=== PATIENT | female | born 1955 | race Caucasian/White ===

== ENCOUNTER 2016-07-24 11:10 | Emergency (ER) | payer SELFPAY ==
[~2016-07-24] VITALS: Ht 167.6 cm; Wt 70.0 kg
[~2016-07-24 11:10] MED LIST: CIPR500T4 PO
[2016-07-24 11:12] VITALS: BP 127/78; PULSE 99; RESP 16; TEMP 98.1; O2SAT 94
[2016-07-24] MEDS ORDERED: PERM5CRE TOPICAL (12:03)
--- NOTE | 2016-07-24 12:06 | PD ---
HPI Chief Complaint: Skin Problem Time Seen by Provider: 12:03 Travel History International Travel<30 days: No Contact w/Intl Traveler<30days: No Traveled to known affect area: No History of Present Illness HPI 61-year-old female presents to the emergency room for evaluation of itchy red rash for the past 2 days. Patient states she recently spent the night at her friend's house down the street and developed a rash shortly afterward. States it seems to be spreading. Started on her abdomen. She has been taking Benadryl without significant relief. Itching is the worst at night. PFSH Past Medical History Diabetes: Yes (NO MEDS) Diminished Hearing: No Menopausal: Yes Past Surgical History Section: Yes (1) Other Surgery: Yes (breast implants) Social History Alcohol Use: Yes (HX OF ETOH ABUSE) Tobacco Use: No Substance Use: Yes Allergies-Medications (Allergen,Severity, Reaction): Coded Allergies: No Known Allergies (Verified , 07/24/16) Reported Meds & Prescriptions Reported Meds & Active Scripts Active No Active Prescriptions or Reported Medications Review of Systems Except as stated in HPI: all other systems reviewed are Neg Physical Exam Narrative GENERAL: Well-nourished, well-developed female in no acute distress. Afebrile. Ambulatory. SKIN: Warm and dry. Extensive maculopapular erythematous rash throughout body. Multiple excoriations. Positive burrowing sign. Positive breakfast, lunch, dinner sign. HEAD: Normocephalic. EYES: No scleral icterus. No injection or drainage. NECK: Supple, trachea midline. No JVD or lymphadenopathy. Data Data Last Documented VS Vital Signs Date Time Temp Pulse Resp B/P Pulse Ox O2 Delivery O2 Flow Rate FiO2 07/24/16 11:12 98.1 99 16 127/78 94 Room Air MDM Medical Decision Making Medical Screen Exam Complete: Yes Emergency Medical Condition: Yes Medical Record Reviewed: Yes Differential Diagnosis Allergic dermatitis versus folliculitis versus scabies Narrative Course 61-year-old female presents to the emergency room for evaluation of itchy red rash for the past 2 days. Rash started after she spent the night with a friend. Physical exam reveals extensive maculopapular erythematous rash throughout body. Multiple excoriations. Positive burrowing sign. Positive breakfast, lunch, dinner sign. This is scabies. Patient discharged with permethrin. Told to wash clothes in hot water and follow up with primary care physician or return for worsening symptoms. She understands and agrees to plan. Diagnosis Primary Impression: Scabies Referrals: Primary Care Physician Patient Instructions: General Instructions, Scabies (ED) Additional Instructions: Rest and drink plenty of fluids. Apply cream to entire body. Leave on for 8-10 hours. If new red spots develop after application, repeat in one week. Follow-up with a primary care physician. Return to the emergency room for worsening symptoms. Med/Other Pt SpecificInfo: Prescription(s) given Scripts Permethrin Topical 5% Cream1 Applic TOPICAL ONCE #1 TUBE Ref 0 Prov:Erika Garcia MD 07/24/16 Disposition: 01 DISCHARGE HOME Condition: Stable Nessa Clark Jul 24, 2016 12:06
== END 2016-07-24 12:20 | disposition home or self-care (01) ==
LOC: NEPB 11:10
DX: B86 Scabies (principal); E11.9 Type 2 diabetes mellitus without complications; F10.21 Alcohol dependence, in remission
CPT/HCPCS: 99283

== ENCOUNTER 2016-08-02 05:10 | Emergency (ER) | payer SELFPAY ==
[~2016-08-02 05:10] MED LIST changes: -CIPR500T4 PO; +PERM5CRE TOPICAL
[2016-08-02 05:20] VITALS: BP 131/72; PULSE 104; RESP 16; TEMP 98.1; O2SAT 96
--- NOTE | 2016-08-02 06:14 | PD ---
HPI Chief Complaint: Skin Problem Time Seen by Provider: 05:57 Travel History International Travel<30 days: No Contact w/Intl Traveler<30days: No Traveled to known affect area: No History of Present Illness HPI The patient is a 61-year-old homeless female that has been homeless for 3 days. She sleeps outside with blankets and covers. She does not feel anything biting her. She has not had a shower in over 3 days. She is starting to get skin rashes where she can touch. The skin rash does not follow areas were scabies usually goes like between the fingers and belt line but it is instead where she can scratch subjective the back, arms and legs. She itches all over, possibly because she is not bathing and this appears to be a rash created by her scratching. She drinks occasionally and does not smoke. PFSH Past Medical History Diabetes: Yes (NO MEDS) Diminished Hearing: No ?: Not Menopausal: Yes Past Surgical History Section: Yes (1) Other Surgery: Yes (breast implants) Social History Alcohol Use: Yes (HX OF ETOH ABUSE) Tobacco Use: No Substance Use: Yes Allergies-Medications (Allergen,Severity, Reaction): Coded Allergies: No Known Allergies (Verified , 08/02/16) Reported Meds & Prescriptions Reported Meds & Active Scripts Active No Active Prescriptions or Reported Medications Review of Systems Except as stated in HPI: all other systems reviewed are Neg Physical Exam Narrative GENERAL: The patient is alert, oriented 3 in slight distress with her skin pruritus. The pulse is 104 but the rest the vital signs are normal. The patient has extremely poor hygiene. SKIN: Warm and dry.The patient has lesions that appeared to be caused by fingernails, scratched skin in areas that are about 3-4 mm in diameter. None of these are infected yet. HEAD: Atraumatic. Normocephalic. EYES: Pupils equal and round. No scleral icterus. No injection or drainage. ENT: No nasal bleeding or discharge. Mucous membranes pink and moist. NECK: Trachea midline. No JVD. CARDIOVASCULAR: Regular rate and rhythm. No murmur appreciated. RESPIRATORY: No accessory muscle use. Clear to auscultation. Breath sounds equal bilaterally. GASTROINTESTINAL: Abdomen soft, non-tender, nondistended. Hepatic and splenic margins not palpable. MUSCULOSKELETAL: No obvious deformities. No clubbing. No cyanosis. No edema. NEUROLOGICAL: Awake and alert. No obvious cranial nerve deficits. Motor grossly within normal limits. Normal speech. PSYCHIATRIC: Appropriate mood and affect; insight and judgment normal. Data Data Last Documented VS Vital Signs Date Time Temp Pulse Resp B/P Pulse Ox O2 Delivery O2 Flow Rate FiO2 08/02/16 06:53 75 18 127/68 100 Room Air 08/02/16 05:20 98.1 Orders Complete Blood Count With Diff (08/02/16 06:15) Comprehensive Metabolic Panel (08/02/16 06:15) Urinalysis - C+S If Indicated (08/02/16 06:15) Sodium Chlor 0.9% 1000 Ml Inj (Ns 1000 M (08/02/16 06:15) Diphenhydramine (Benadryl) (08/02/16 07:00) Labs Laboratory Tests Test 08/02/16 06:45 White Blood Count 4.2 TH/MM3 Red Blood Count 4.33 MIL/MM3 Hemoglobin 13.5 GM/DL Hematocrit 39.5 % Mean Corpuscular Volume 91.3 FL Mean Corpuscular Hemoglobin 31.3 PG Mean Corpuscular Hemoglobin 34.2 % Concent Red Cell Distribution Width 12.6 % Platelet Count 238 TH/MM3 Mean Platelet Volume 6.9 FL Neutrophils (%) (Auto) 52.6 % Lymphocytes (%) (Auto) 30.0 % Monocytes (%) (Auto) 12.9 % Eosinophils (%) (Auto) 3.6 % Basophils (%) (Auto) 0.9 % Neutrophils # (Auto) 2.2 TH/MM3 Lymphocytes # (Auto) 1.3 TH/MM3 Monocytes # (Auto) 0.5 TH/MM3 Eosinophils # (Auto) 0.2 TH/MM3 Basophils # (Auto) 0.0 TH/MM3 CBC Comment DIFF FINAL Differential Comment MDM Medical Decision Making Medical Screen Exam Complete: Yes Emergency Medical Condition: Yes Medical Record Reviewed: Yes Differential Diagnosis Neurodermatitis, scabies, impetigo Narrative Course The patient appears to have neurodermatitis. The pruritus is caused by extremely poor hygiene. I discussed the patient with the [facility] service, Dr. Ruiz and she did not feel it appropriate that we could 23 hour observation this patient so she can get a shower and case management recommendation. The patient will remain in the emergency department and the nurses will try to get a hot shower for her and case management will consult on this patient to [facility] her some penitentiary where she will not lie on the ground. Diagnosis Primary Impression: Neurodermatitis Additional Impression: Homeless single person Additional Instructions: We are hoping to get shoe to a homeless penitentiary or [facility]. Apparently, family members are not willing to help this patient at this time. The patient does have family members. Med/Other Pt SpecificInfo: No Change to Meds Scripts No Active Prescriptions or Reported Meds Disposition: 01 DISCHARGE HOME Condition: Stable Sushil Paul MD Aug 02, 2016 06:14
[2016-08-02] MEDS ORDERED: SODIUM CHLOR 0.9% 1000 ML INJ 1,000 ML IV SCH (06:15)
[2016-08-02 06:53] VITALS: BP 127/68; PULSE 75; RESP 18; O2SAT 100
[2016-08-02 06:56] LABS: AUTOMATED NEUTROPHIL # 2.2 TH/MM3 (1.8-7.7); BASOPHIL % 0.9 % (0.0-2.0); EOSINOPHIL # 0.2 TH/MM3 (0-0.4); EOSINOPHIL % 3.6 % (0.0-4.0); HEMATOCRIT 39.5 % (35.0-46.0); HEMO FLAGS DIFF FINAL; LYMPHOCYTE # 1.3 TH/MM3 (1.0-4.8); MEAN CELL VOLUME 91.3 FL (80.0-100.0); MEAN CORPUSCULAR HEMOGLOBIN 31.3 PG (27.0-34.0); MEAN CORPUSCULAR HGB CONC 34.2 % (32.0-36.0); MONO % 12.9 % (0.0-8.0); NEUT % 52.6 % (16.0-70.0); PLATELET COUNT 238 TH/MM3 (150-450); RED BLOOD COUNT 4.33 MIL/MM3 (4.00-5.30); RED CELL DISTRIBUTION WIDTH 12.6 % (11.6-17.2); WHITE BLOOD COUNT 4.2 TH/MM3 (4.0-11.0)
[2016-08-02] MEDS ORDERED: diphenhydrAMINE HCL 50 MG CAP PO ONE (07:00)
[2016-08-02 07:16] LABS: ALKALINE PHOSPHATASE 76 U/L (45-117); ALT (GPT) 24 U/L (10-53); ANION GAP 11 MEQ/L (5-15); AST (GOT) 22 U/L (15-37); BICARBONATE 29.2 MEQ/L (21.0-32.0); BLOOD UREA NITROGEN 5 MG/DL (7-18); CHLORIDE 99 MEQ/L (98-107); GLOMERULAR FILTRATION RATE 102 ML/MIN (>89); SODIUM (NA) 139 MEQ/L (136-145); TOTAL BILIRUBIN ADULT 1.5 MG/DL (0.2-1.0)
[2016-08-02 07:17] LABS: POTASSIUM 2.9 MEQ/L (3.5-5.1)
[2016-08-02] MEDS ORDERED: POTA10CA PO (07:22)
[2016-08-02] MEDS ORDERED: POTASSIUM CHLORIDE 20 MEQ CONTROLLED RELEASE TAB PO ONE (07:30)
[2016-08-02 07:50] LABS: BLOOD, URINE SMALL (NEG); GLUCOSE,URINE NEG (NEG); KETONE, URINE NEG (NEG); NITRITE,URINE NEG (NEG)
[2016-08-02 07:59] LABS: METHOD OF COLLECTION CLEAN CATCH; URINE COLOR YELLOW (YELLW/STRAW)
[2016-08-02 08:00] LABS: BACTERIA, URINE RARE /hpf; COMMENT (UR) CULTURE INDICATED; CULTURE IF INDICATED CULTURE INDICATED
[2016-08-02] MEDS ORDERED: BENA25TA3 PO (08:49)
[2016-08-02] MEDS ORDERED: PERM5CRE11 TOPICAL (08:50)
--- NOTE | 2016-08-02 08:50 | PD ---
Physical Exam Narrative Patient was seen by ED physician and signed out to me. Data Data Last Documented VS Vital Signs Date Time Temp Pulse Resp B/P Pulse Ox O2 Delivery O2 Flow Rate FiO2 08/02/16 06:53 75 18 127/68 100 Room Air 08/02/16 05:20 98.1 Orders Complete Blood Count With Diff (08/02/16 06:15) Comprehensive Metabolic Panel (08/02/16 06:15) Urinalysis - C+S If Indicated (08/02/16 06:15) Sodium Chlor 0.9% 1000 Ml Inj (Ns 1000 M (08/02/16 06:15) Diphenhydramine (Benadryl) (08/02/16 07:00) Potassium Chloride (Kcl) (08/02/16 07:30) Urine Culture (08/02/16 07:46) Labs Laboratory Tests Test 08/02/16 08/02/16 06:45 07:46 White Blood Count 4.2 TH/MM3 Red Blood Count 4.33 MIL/MM3 Hemoglobin 13.5 GM/DL Hematocrit 39.5 % Mean Corpuscular Volume 91.3 FL Mean Corpuscular Hemoglobin 31.3 PG Mean Corpuscular Hemoglobin 34.2 % Concent Red Cell Distribution Width 12.6 % Platelet Count 238 TH/MM3 Mean Platelet Volume 6.9 FL Neutrophils (%) (Auto) 52.6 % Lymphocytes (%) (Auto) 30.0 % Monocytes (%) (Auto) 12.9 % Eosinophils (%) (Auto) 3.6 % Basophils (%) (Auto) 0.9 % Neutrophils # (Auto) 2.2 TH/MM3 Lymphocytes # (Auto) 1.3 TH/MM3 Monocytes # (Auto) 0.5 TH/MM3 Eosinophils # (Auto) 0.2 TH/MM3 Basophils # (Auto) 0.0 TH/MM3 CBC Comment DIFF FINAL Differential Comment Sodium Level 139 MEQ/L Potassium Level 2.9 MEQ/L Chloride Level 99 MEQ/L Carbon Dioxide Level 29.2 MEQ/L Anion Gap 11 MEQ/L Blood Urea Nitrogen 5 MG/DL Creatinine 0.60 MG/DL Estimat Glomerular Filtration 102 ML/MIN Rate Random Glucose 114 MG/DL Calcium Level 9.0 MG/DL Total Bilirubin 1.5 MG/DL Aspartate Amino Transf 22 U/L (AST/SGOT) Alanine Aminotransferase 24 U/L (ALT/SGPT) Alkaline Phosphatase 76 U/L Total Protein 7.7 GM/DL Albumin 3.6 GM/DL Urine Collection Type CLEAN CATCH Urine Color YELLOW Urine Turbidity CLEAR Urine pH 6.0 Urine Specific [place] 1.004 Urine Protein NEG mg/dL Urine Glucose (UA) NEG mg/dL Urine Ketones NEG mg/dL Urine Occult Blood SMALL Urine Nitrite NEG Urine Bilirubin NEG Urine Leukocyte Esterase MOD Urine RBC 4-9 /hpf Urine WBC 20-24 /hpf Urine Squamous Epithelial 6-8 /hpf Cells Urine Bacteria RARE /hpf Microscopic Urinalysis Comment CULTURE INDICATED Urine Collection Time 07:46 MDM Supervised Visit with [facility]: Yes Diagnosis Primary Impression: Neurodermatitis Additional Impression: Homeless single person Patient Instructions: General Instructions Additional Instruction: We are hoping to get shoe to a homeless [facility] or [facility]. Apparently, family members are not willing to help this patient at this time. The patient does have family members. Scripts Permethrin Topical (Elimite Topical)5% Cream1 Applic TOPICAL ONCE #1 TUBE Ref 0 Prov:Jigar Freeman MD 08/02/16 Diphenhydramine (Benadryl Allergy)25 Mg Tab25 Mg PO Q6H PRN (ALLERGIES) #30 TAB Ref 0 Prov:Jigar Freeman MD 08/02/16 Potassium Chloride ER 10 Meq Cap10 Meq PO BID #30 CAP Ref 0 Prov:Jigar Freeman MD 08/02/16 Disposition: 01 DISCHARGE HOME Condition: Stable Jigar Freeman MD Aug 02, 2016 08:50
== END 2016-08-02 09:15 | disposition home or self-care (01) ==
LOC: PHED 05:10
DX: L28.0 Lichen simplex chronicus (principal); E11.9 Type 2 diabetes mellitus without complications; F19.10 Other psychoactive substance abuse, uncomplicated; Z59.0 Homelessness
CPT/HCPCS: 80053; 81001; 85025; 86403; 87077; 87086; 87186; 99283; J7030; Q0163

== ENCOUNTER 2016-08-05 08:11 | Emergency (ER) | payer SELFPAY ==
[~2016-08-05] VITALS: Ht 167.6 cm; Wt 67.8 kg
[~2016-08-05 08:11] MED LIST changes: +BENA25TA3 PO; -PERM5CRE TOPICAL; +PERM5CRE11 TOPICAL; +POTA10CA PO
[2016-08-05 08:25] VITALS: BP 119/60; PULSE 79; RESP 17; TEMP 97.9; O2SAT 97
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
[2016-08-05] MEDS ORDERED: hydrOXYzine PAMOATE 25 MG CAP PO ONE (08:45)
== END 2016-08-05 09:09 | disposition home or self-care (01) ==
LOC: PHED 08:11
DX: R21 Rash and other nonspecific skin eruption (principal); Z59.0 Homelessness
CPT/HCPCS: 99282; Q0177

== ENCOUNTER 2016-10-11 02:09 | Emergency (ER) | payer SELFPAY ==
[~2016-10-11] VITALS: Ht 167.6 cm; Wt 62.6 kg
[2016-10-11 02:19] VITALS: BP 107/73; PULSE 77; RESP 16; TEMP 98; O2SAT 96
[2016-10-11 05:31] VITALS: BP 107/73; PULSE 77; RESP 18; TEMP 98; O2SAT 96
[2016-10-11 05:58] VITALS: BP 127/71; PULSE 60; RESP 16; O2SAT 98
--- NOTE | 2016-10-11 06:22 | PD ---
HPI Chief Complaint: Allergic/Adverse Reaction Time Seen by Provider: 06:11 Travel History International Travel<30 days: No Contact w/Intl Traveler<30days: No Traveled to known affect area: No History of Present Illness HPI The patient is a 61-year-old homeless female who states she developed a rash a few hours ago. She states she had this before and several Benadryl helped stop the itching. She notes she needs a shower and she thinks she can get that at [facility]. She cannot afford any medications. She called an ambulance today to come to the emergency department. She called the ambulance mainly because she did not have a ride. PFSH Past Medical History Hx Anticoagulant Therapy: No Diabetes: No Diminished Hearing: No Tetanus Vaccination: < 5 Years Influenza Vaccination: No ?: Not LMP: menopausal Menopausal: Yes Past Surgical History Section: Yes (1) Other Surgery: Yes (breast implants) Social History Alcohol Use: No (HX OF ETOH ABUSE) Tobacco Use: No Substance Use: Yes Allergies-Medications (Allergen,Severity, Reaction): Coded Allergies: No Known Allergies (Verified , 10/11/16) Reported Meds & Prescriptions Reported Meds & Active Scripts Active No Active Prescriptions or Reported Medications Review of Systems Except as stated in HPI: all other systems reviewed are Neg Physical Exam Narrative GENERAL: Well-nourished, well-developed patient in slight apparent distress with her pruritic skin rash. The patient exhibits poor hygiene. Her vital signs are normal. SKIN: Warm and dry. There are multiple areas of erythematous papules of varying sizes that do not appear at the belt line and do not appear between the toes or the fingers. This does not appear as scabies. These do not appear as insect bites. The anterior forearms and lower legs are spared. The back and anterior trunk are the main areas of the rash. There is also a lesion on the left foot that is starting to get infected. Her fingernails are encrusted with dirt and these are likely to cause impetigo with her scratching. HEAD: Normocephalic. EYES: No scleral icterus. No injection or drainage. NECK: Supple, trachea midline. No JVD or lymphadenopathy. CARDIOVASCULAR: Regular rate and rhythm without murmurs, gallops, or rubs. RESPIRATORY: Breath sounds equal bilaterally. No accessory muscle use. GASTROINTESTINAL: Abdomen soft, non-tender, nondistended. MUSCULOSKELETAL: No cyanosis, or edema. BACK: Nontender without obvious deformity. No CVA tenderness. Data Data Last Documented VS Vital Signs Date Time Temp Pulse Resp B/P Pulse Ox O2 Delivery O2 Flow Rate FiO2 10/11/16 05:58 60 16 127/71 98 Room Air 10/11/16 05:31 98.0 MDM Medical Decision Making Medical Screen Exam Complete: Yes Emergency Medical Condition: Yes Medical Record Reviewed: Yes Differential Diagnosis Allergic rash, scabies, neurodermatitis Narrative Course The patient likely has an allergic rash. This does not appear to be scabies because of its distribution and timing. The patient exhibits poor hygiene and she needs to take some hot showers. The lesion on her left foot is infected and we will give her some anabolic ointment for this. She cannot afford any medications and we will give her some Benadryl tablets here. Diagnosis Primary Impression: Rash and nonspecific skin eruption Additional Instructions: It is extremely important to clean under your fingernails and get several good hot showers. This will improve the itching and the rash. Med/Other Pt SpecificInfo: No Change to Meds Scripts No Active Prescriptions or Reported Meds Disposition: 01 DISCHARGE HOME Condition: Stable Sushil Paul MD Oct 11, 2016 06:22
[2016-10-11] MEDS ORDERED: diphenhydrAMINE HCL 50 MG CAP PO ONE (06:30)
[2016-10-11 06:46] VITALS: BP 117/66
== END 2016-10-11 06:58 | disposition home or self-care (01) ==
LOC: PHED 02:09
DX: R21 Rash and other nonspecific skin eruption (principal); Z59.0 Homelessness
CPT/HCPCS: 99283; Q0163

== ENCOUNTER 2016-11-19 11:27 | Emergency (ER) | payer SELFPAY ==
[~2016-11-19] VITALS: Ht 167.6 cm; Wt 63.0 kg
[2016-11-19 11:28] VITALS: BP 134/89; PULSE 87; RESP 16; TEMP 97.9; O2SAT 98
--- NOTE | 2016-11-19 11:37 | PD ---
HPI . itchy rash to abdomen and some on body Chief Complaint: Skin Problem Time Seen by Provider: 11:37 Travel History International Travel<30 days: No Contact w/Intl Traveler<30days: No Traveled to known affect area: No History of Present Illness HPI 61-year-old female who is homeless here with complaints of itchy rash to her abdomen. Patient says that she has been seen several times for this rash, but that it is still present. I looked back in her reports and in July she was diagnosed with scabies. She tells me that she never took the medication. She admits to being homeless and sleeping outside in a tent. It is possible that she is being bitten by bugs. She does not get regular showers. She admits to itching. She denies any fever or chills or rashes with drainage. PFSH Past Medical History Hx Anticoagulant Therapy: No Diabetes: No Diminished Hearing: No ?: Not Menopausal: Yes Past Surgical History Section: Yes (1) Other Surgery: Yes (breast implants) Social History Alcohol Use: No (HX OF ETOH ABUSE) Tobacco Use: No Substance Use: Yes Allergies-Medications (Allergen,Severity, Reaction): Coded Allergies: No Known Allergies (Verified , 11/19/16) Reported Meds & Prescriptions Reported Meds & Active Scripts Active Vistaril (Hydroxyzine Pamoate) 25 Mg Cap 25 Mg PO HS Permethrin Topical (Permethrin) 5% Cream 1 Applic TOPICAL ONCE Review of Systems General / Constitutional: No: Fever Eyes: No: Visual changes HENT: No: Headaches Cardiovascular: No: Chest Pain or Discomfort Respiratory: No: Shortness of Breath Gastrointestinal: No: Abdominal Pain Genitourinary: No: Dysuria Musculoskeletal: No: Pain Skin: Positive Rash, Positive Itching Neurologic: No: Weakness Psychiatric: No: Depression Endocrine: No: Polydipsia Hematologic/Lymphatic: No: Easy Bruising Physical Exam Narrative GENERAL: AAO x 3, no acute distress, Well-nourished, well-developed patient. SKIN: Warm and dry. No visible rashes or bruising. Linear rash is distributed over the entire abdomen and back. There are some scattered lesions on the arms. There is positive burrowing present. There are multiple excoriations. There is no evidence of cellulitis. HEAD: Normocephalic and atraumatic. EYES: No scleral icterus. No injection or drainage. ENT: No nasal drainage noted. Mucous membranes pink. Airway patent. NECK: Supple, trachea midline. No JVD. CARDIOVASCULAR: Regular rate and rhythm without murmurs, gallops, or rubs. RESPIRATORY: Breath sounds equal bilaterally. No accessory muscle use. No rhonchi or rales. GASTROINTESTINAL: Rash as described above, otherwise unremarkable EXTREMITIES: No cyanosis or edema. BACK: Nontender without obvious deformity. No CVA tenderness. PSYCH: AAO x 3, normal affect. Data Data Last Documented VS Vital Signs Date Time Temp Pulse Resp B/P Pulse Ox O2 Delivery O2 Flow Rate FiO2 11/19/16 11:28 97.9 87 16 134/89 98 MDM Medical Decision Making Medical Screen Exam Complete: Yes Emergency Medical Condition: Yes Medical Record Reviewed: Yes Differential Diagnosis Scabies, insect bite, less likely shingles, less likely cellulitis Narrative Course 61-year-old female who is homeless here with complaints of itchy rash to her abdomen. Patient says that she has been seen several times for this rash, but that it is still present. I looked back in her reports and in July she was diagnosed with scabies. She tells me that she never took the medication. She admits to being homeless and sleeping outside in a tent. It is possible that she is being bitten by bugs. She does not get regular showers. She admits to itching. She denies any fever or chills or rashes with drainage. Patient seen and examined. She appears to have scabies. I explained the details of scabies with her. I explained to her that she will need to get this medication and get treated. I've advised her to reach out to the homeless coalition to see if they can be of any assistance. Patient verbalized understanding of instructions, questions were answered, and thanked me for their care. I advised them if their condition worsens, please return to the nearest emergency room for further care. Diagnosis Primary Impression: Scabies Patient Instructions: General Instructions, Scabies (ED) Additional Instructions: Please return to emergency department if your symptoms return or worsen. Follow up with your primary care provider. Take medications as prescribed. Please take medication as prescribed. Look into community resources for assistance with your prescriptions. Med/Other Pt SpecificInfo: Prescription(s) given Scripts Hydroxyzine Pamoate (Vistaril)25 Mg Cap25 Mg PO HS #15 CAP Ref 0 Prov:Kash Loja MD 11/19/16 Permethrin Topical 5% Cream1 Applic TOPICAL ONCE #1 TUBE Ref 0 Prov:Kash Loja MD 11/19/16 Disposition: 01 DISCHARGE HOME Condition: Stable Stephanie Vilchis Nov 19, 2016 11:37
[2016-11-19] MEDS ORDERED: PERM5CRE TOPICAL (11:49)
[2016-11-19] MEDS ORDERED: VIST25CA PO (11:49)
== END 2016-11-19 12:25 | disposition home or self-care (01) ==
LOC: NEPK 11:27
DX: B86 Scabies (principal); Z59.0 Homelessness
CPT/HCPCS: 99282